=== PATIENT | male | born 1965 | race Caucasian/White ===

== ENCOUNTER → 2016-09-16 | Outpatient (CLI) | payer OTHER ==
[~2016-09-16] MED LIST: ADVAIR 1001 DISK W/D PO; ALBUTEROL MININEB NEB; ALFUZOSIN HCL E10 MG PO; CYMBALTA PO; KLONOPIN PO; MEDROL PO; METOPROLOL PO; MUCINEX DM1 TAB.SR . PO; PHENERGAN W/CO120 ML PO; PHENERGAN25 MG PO; PROMETHAZINE V240 ML PO; PROTONIX PO; SAW PALMETTO CA1 CAP PO; VICODIN 5/1 TAB 5/50 PO; VIMOVO DR 500-1 EACH PO; VITAMIN B12 PO; ZINC SULFATE PO
--- NOTE | ~2016-09-16 | ST ---
Unit #: [id number] #: [id number] Patient: NABILA SANCHEZ [id number] [address] [address] [id number] O MR#: [id number] NAME: NABILA SANCHEZ : 1965 SEX: M STUDY DATE/TIME: UNIT: [facility] ROOM: STUDY DESCRIPTION: Stress Test Attending Physician: Bautista Watters M.D. Referring Physician: Bautista Watters M.D. Primary Care Physician: Sabina Osei M.D. CARDIOLOGY REPORT EXAM Stress Test INDICATION Shortness of breath and chest discomfort. SUMMARY The patient underwent Lexiscan protocol. The patient's resting heart rate was 50 beats/minute which increased to 91 beats/minute representing 54% of the maximum age-predicted heart rate. Patient's resting blood pressure 127/77 mmHg which increased to 147/88 mmHg. The patient's resting ECG revealed normal sinus rhythm with normal ST segments. The patient's stress ECG shows normal sinus rhythm with preserved ST segments. There is no supraventricular or ventricular ectopy. There are no pauses noted. CONCLUSION 1. Negative ECG portion of the Lexiscan Scan study for ischemia. 2. Perfusion imaging dictated separately. Dictated by... Bethel Crandall M.D. GA/arthur TD: 09/17/2016 05:45 JOB #: [id number] CARDIOLOGY REPORT Page 1 of 1 X BETHEL CRANDALL MD CARDIOLOGY REPORT
--- NOTE | ~2016-09-16 | TH ---
Unit #: [id number] #: [id number] Patient: NABILA SANCHEZ [id number] [address] [address] [id number] O MR#: [id number] NAME: NABILA SANCHEZ : 1965 SEX: M STUDY DATE/TIME: UNIT: [facility] ROOM: STUDY DESCRIPTION: Nuclear Study Attending Physician: Bautista Watters M.D. Referring Physician: Bautista Watters M.D. Primary Care Physician: Sabina Osei M.D. CARDIOLOGY REPORT EXAM Nuclear Perfusion Imaging INDICATIONS Shortness of breath and chest discomfort. SUMMARY The patient underwent nuclear stress test. Received a resting dose of 10.91 mCi and a stress dose of 35.2 mCi. On gated imaging, the patient appears to have normal wall motion with a preserved ejection fraction. The patient's LVEF is 59%. On raw images, no abnormal uptake seen. On perfusion imaging, comparing rest and stress images, there appears to be no reversible perfusion defects. CONCLUSION 1. No obvious ischemia. 2. Preserved ejection fraction. LVEF is 59%. 3. ECG portion dictated separately. No ischemia. Dictated by... Bethel Crandall M.D. AR/df TD: 09/17/2016 05:52 JOB #: [id number] Unit #: [id number] #: [id number] Patient: NABILA SANCHEZ CARDIOLOGY REPORT Page 1 of 1 X BETHEL CRANDALL MD CARDIOLOGY REPORT
== END | disposition home or self-care (01) ==
LOC: CNUC 08-27 09:00
DX: R07.89 Other chest pain (principal); I34.0 Nonrheumatic mitral (valve) insufficiency
CPT/HCPCS: 78452; 93017; 93306; A9500; J2785